=== PATIENT | female | born 1975 | race Caucasian/White ===

== ENCOUNTER 2020-10-13 15:41 | Outpatient (CLI) | payer OTHER, SELFPAY ==
--- NOTE | ~2020-10-13 | MM_ITS ---
EXAMINATION: MM scrn marco a implant BI w marc HISTORY: Screening mammogram TECHNIQUE: Craniocaudal and mediolateral oblique 3-D tomosynthesis images with implant displacement a nd synthetic 2-D images were generated. Craniocaudal and mediolateral oblique views of the breasts wi thout implant displacement were obtained using full field digital mammography. CAD analysis was submi tted and interpreted. COMPARISON: Comparison to multiple prior studies sequentially, with oldest reviewed study dated 12/2015. BREAST PARENCHYMAL COMPOSITION: There are scattered areas of fibroglandular density. FINDINGS: There is no evidence of suspicious mass, calcification, or architectural distortion to sugg est malignancy in either breast. There has been no suspicious interval change. IMPRESSION: 1. No mammographic evidence of malignancy. 2. Recommend routine screening mammography in one year. BI-RADS Category 1: Negative Reviewed, dictated and finalized at location A.
== END 2020-10-13 15:42 | disposition home or self-care (01) ==
LOC: ANHIMG 15:44
PROVIDERS: PCP Family Medicine; Visit Provider Obstetrics & Gynecology
DX: Z12.31 Encounter for screening mammogram for malignant neoplasm of breast (principal)
CPT/HCPCS: 77063; 77067

== ENCOUNTER 2022-10-13 07:28 | Outpatient (CLI) | payer OTHER, SELFPAY ==
--- NOTE | ~2022-10-13 | MM_ITS ---
EXAMINATION: MM scrn marco a implant BI w marc HISTORY: Screening mammogram TECHNIQUE: Craniocaudal and mediolateral oblique 3-D tomosynthesis images with implant displacement a nd synthetic 2-D images were generated. Craniocaudal and mediolateral oblique views of the breasts wi thout implant displacement were obtained using full field digital mammography. CAD analysis was submi tted and interpreted. COMPARISON: October 13, 2020, July 08, 2019 bilateral screening mammogram examinations BREAST PARENCHYMAL COMPOSITION: There are scattered areas of fibroglandular density. FINDINGS: Status post bilateral augmentation mammoplasty. Scattered bilateral benign calcifications a re again noted. There is no evidence of suspicious mass, calcification, or architectural distortion t o suggest malignancy in either breast. There has been no suspicious interval change. IMPRESSION: 1. No mammographic evidence of malignancy. 2. Recommend routine screening mammography in one year. BI-RADS Category 2: Benign finding(s). Reviewed, dictated and finalized at location A.
== END 2022-10-13 07:29 | disposition home or self-care (01) ==
LOC: ANHIMG 07:30
PROVIDERS: PCP Family Medicine; Visit Provider Obstetrics & Gynecology
DX: Z12.31 Encounter for screening mammogram for malignant neoplasm of breast (principal)
CPT/HCPCS: 77063; 77067

== ENCOUNTER 2022-12-21 07:02 | Day surgery (SDC) | payer OTHER, SELFPAY ==
[2022-11-08 09:11] VITALS: BMI 38.9
[2022-12-07 13:23] VITALS: BMI 24.8
--- NOTE | 2022-12-20 12:33 | WPDANESEPPF ---
Anes - Initial Pre Proc Eval Procedure: Operation Date: 12/21/22 09:00 Proposed Procedures p Screening Colonoscopy - Edward Smith MD Date/Time: 12/20/22 12:33 Surgeon: Edward Smith MD Pre Op Diagnosis: Neoplasm Screening Patient Data Age: 47 Gender: F Height: 2.01 m Weight: 100 kg Allergies Allergy/AdvReac Type Severity Reaction Status Date / Time No Known Allergies Allergy Verified 12/21/22 07:32 Home Medications Medication Instructions Recorded Confirmed Type cetirizine 10 mg tablet (Zyrtec) 10 mg PO DAILY 05/19/19 12/21/22 History albuterol sulfate 90 mcg/actuation See Rx Instructions .Route 01/09/22 12/21/22 Rx aerosol inhaler .COMPLEX #25.5 grams budesonide-formoterol HFA 160 See Rx Instructions .Route 02/13/22 12/21/22 Rx mcg-4.5 mcg/actuation aerosol .COMPLEX #30.6 grams inhaler (Symbicort) montelukast 10 mg tablet See Rx Instructions .Route 05/22/22 12/21/22 Rx .COMPLEX #90 tabs nebivolol 10 mg tablet See Rx Instructions .Route 05/24/22 12/21/22 Rx .COMPLEX #90 tabs topiramate 25 mg tablet See Rx Instructions .Route 07/28/22 12/21/22 Rx .COMPLEX #180 tabs esomeprazole magnesium 40 mg 40 mg PO DAILY #90 caps 08/02/22 12/21/22 Rx capsule,delayed release (Nexium) Patient hx anesthesia problems: none Family hx anesthesia problems: none Results Review: All pre-operative results and documents have been reviewed as part of the pre-operative evaluation. [facility] Past Medical History Medical History (Updated 12/20/22 @ 12:33 by José Miguel Tomlinson DO) Asthma Essential (primary) hypertension Hyperlipidemia, unspecified Migraine Surgical History Surgical History Hx of cholecystectomy (~09/23/10) Family History Family History Grandparent Diabetes mellitus Hypertension Family history of malignant neoplasm of cervix Father Family history of elevated blood lipids Family history of primary malignant neoplasm of liver Other Family history of lung cancer Family history of malignant neoplasm of ovary No family history of cardiovascular disease Social History Social History (Updated 08/23/22 @ 09:37 by Sally Washington MA) Smoking status: Never smoker Second hand tobacco smoke exposure: No Alcohol intake: former Substance use: never Substance use type: does not use Lack of Transportation: No Lack of Food: Never True Current Housing: I Have Housing Concerned About Future Housing: No Difficulty Paying Gas/Electric Bills: No Difficulty Paying for Meds: No Currently Unemployed: No Education: Master's Degree or Higher Difficulty w/ Childcare or Family Care: No Living arrangements: with family Occupation/Education: occupation Gender identity (if verbalized by the patient): Female Spiritual care concerns: No Agree to blood products: Yes Anes - Eval Final PreProcedure Day of Procedure 12/20/22 12:33 Patient weight: normal Heart: regular rate and rhythm Lungs: clear to auscultation and normal air movement Airway: Mallampati scale class II Neurological: alert and oriented Last oral intake: >/= 8 hours ASA classification: III Emergent: no Anesthetic plan: proceed Anesthesia type and monitoring: general GIVS and standard monitoring Results Review: All pre-operative results and documents have been reviewed as part of the pre-operative evaluation. Informed Consent: The patient's anesthetic plan and its attendant risks and benefits were discussed with the patient/family/POA. Questions were solicited and answers provided to the satisfaction of the patient/family/POA.
[2022-12-21 07:49] VITALS: BP 147/84; PULSE 73; RESP 16; TEMP 36.8; O2SAT 100
[2022-12-21] MEDS: LACTATED RINGERS 1,000 ML 150 ML IV CONT (07:59)
--- NOTE | 2022-12-21 08:20 | PM.HPGS ---
History of Present Illness History of Present Illness Consent: Risks, benefits, and alternatives have been discussed and questions answered. Patient agrees to proceed with procedure. Chief complaint: Neoplasm Screening Narrative: Cathy Hunter is a 47 year old female here for first screening colonoscopy Review of Systems Constitutional: Constitutional: Denies headache(s) and Denies weakness Eyes: Eyes: Denies blurry vision ENT: Reports Normal hearing present, Denies headache(s) and Denies neck pain Cardiovascular: Cardiovascular: Denies chest pain and Denies dyspnea Respiratory: Respiratory: Denies dyspnea Gastrointestinal: Gastrointestinal: Reports no additional gastrointestinal complaints Genitourinary: Genitourinary: Denies dysuria Musculoskeletal: Musculoskeletal: Denies neck pain Integumentary/Breasts: Skin/Breast: Denies dry skin Neurologic: Reports Normal hearing present, Denies headache(s) and Denies weakness Psychiatric: Psychiatric: Denies anxiety Endocrine: Endocrine: Denies change in body appearance Hematologic/Lymphatic: Hematologic/Lymphatic: Denies easy bleeding Allergic/Immunologic: Allergic/Immunologic: Denies urticaria PMFSH Past Medical History Medical History (Updated 12/20/22 @ 12:33 by José Miguel Tomlinson DO) Asthma Essential (primary) hypertension Hyperlipidemia, unspecified Migraine Surgical History Surgical History Hx of cholecystectomy (~09/23/10) Family History Family History Grandparent Diabetes mellitus Hypertension Family history of malignant neoplasm of cervix Father Family history of elevated blood lipids Family history of primary malignant neoplasm of liver Other Family history of lung cancer Family history of malignant neoplasm of ovary No family history of cardiovascular disease Social History Social History (Updated 08/23/22 @ 09:37 by Sally Washington MA) Smoking status: Never smoker Second hand tobacco smoke exposure: No Alcohol intake: former Substance use: never Substance use type: does not use Lack of Transportation: No Lack of Food: Never True Current Housing: I Have Housing Concerned About Future Housing: No Difficulty Paying Gas/Electric Bills: No Difficulty Paying for Meds: No Currently Unemployed: No Education: Master's Degree or Higher Difficulty w/ Childcare or Family Care: No Living arrangements: with family Occupation/Education: occupation Gender identity (if verbalized by the patient): Female Spiritual care concerns: No Agree to blood products: Yes Meds Home Medications and Allergies Home Medications Medication Instructions Recorded Confirmed Type cetirizine 10 mg tablet (Zyrtec) 10 mg PO DAILY 05/19/19 12/21/22 History albuterol sulfate 90 mcg/actuation See Rx Instructions .Route 01/09/22 12/21/22 Rx aerosol inhaler .COMPLEX #25.5 grams budesonide-formoterol HFA 160 See Rx Instructions .Route 02/13/22 12/21/22 Rx mcg-4.5 mcg/actuation aerosol .COMPLEX #30.6 grams inhaler (Symbicort) montelukast 10 mg tablet See Rx Instructions .Route 05/22/22 12/21/22 Rx .COMPLEX #90 tabs nebivolol 10 mg tablet See Rx Instructions .Route 05/24/22 12/21/22 Rx .COMPLEX #90 tabs topiramate 25 mg tablet See Rx Instructions .Route 07/28/22 12/21/22 Rx .COMPLEX #180 tabs esomeprazole magnesium 40 mg 40 mg PO DAILY #90 caps 08/02/22 12/21/22 Rx capsule,delayed release (Nexium) Allergies Allergy/AdvReac Type Severity Reaction Status Date / Time No Known Allergies Allergy Verified 12/21/22 07:32 Vital Signs Vital Signs - 24 hr 12/21/22 07:49 Temperature 98.2 F Pulse Rate 73 Respiratory Rate 16 Blood Pressure 147/84 H Pulse Oximetry 100 Oxygen Delivery Room Air Exam Const: General: comfortable and no acute distress HENMT: Face/Nose/S
[2022-12-21 08:38] VITALS: BP 107/67; PULSE 72; RESP 18; O2SAT 99
[2022-12-21 08:48] VITALS: BP 116/75; PULSE 70; RESP 18; O2SAT 99
[2022-12-21 08:58] VITALS: BP 117/77; PULSE 61; RESP 18; O2SAT 100
--- NOTE | 2022-12-21 10:01 | WPDANESPN ---
Anes - Prog Note Post-Op Date/Time: 12/21/22 10:01 Cardiovascular status: normal Respiratory status: normal Airway patency: baseline Mental status: baseline Post-Op hydration status: normal Vital Signs: Last Vital Signs Temp 36.8 C 12/21/22 07:49 Pulse 61 12/21/22 08:58 Resp 18 12/21/22 08:58 BP 117/77 12/21/22 08:58 Pulse Ox 100 12/21/22 08:58 O2 Del Method Room Air 12/21/22 08:58 Pain Score (VAS): 0 I/O: Intake & Output 12/20/22 12/21/22 12/21/22 23:59 07:59 15:59 Intake Total 400 Balance 400 Post-procedural complaints: none Patient Feedback: Patient satisfied with anesthetic care. Other Findings: Patient vital signs back to baseline. Patient denies nausea and vomiting. Patient's pain under control. Patient OK for discharge.
== END 2022-12-21 09:06 | disposition home or self-care (01) ==
PROVIDERS: Visit Provider Internal Medicine Gastroenterology
PROC: 0DJD8ZZ Inspection of Lower Intestinal Tract, Via Natural or Artificial Opening Endoscopic (ICD-10-PCS; CPT 45378; principal; 2022-12-21 09:00)
DX: Z12.11 Encounter for screening for malignant neoplasm of colon (principal)
CPT/HCPCS: 45378

== ENCOUNTER 2023-11-23 10:28 | Emergency (ER) | payer OTHER, SELFPAY ==
[2023-11-23 10:45] VITALS: BP 127/64; PULSE 90; RESP 16; TEMP 36.9; O2SAT 100
--- NOTE | 2023-11-23 10:51 | ED.URI ---
HPI - URI/Sore Throat General Chief Complaint: Upper Respiratory Infection Stated Complaint: Chest Cold Time Seen by Provider: 11/23/23 10:51 Source: patient Mode of arrival: ambulatory Limitations: no limitations History of Present Illness HPI Narrative: 47-year-old female presents with complaint nasal congestion, sinus congestion with pressure in for 8-9 days. Afebrile. Also reports coughing. Over the last 2-3 days she has had wheezing with mild chest tightness.. History of asthma. Using Inhalers as prescribed. All systems reviewed and negative except as noted above. Related Data Home Medications Medication Instructions Recorded Confirmed cetirizine 10 mg tablet (Zyrtec) 10 mg PO DAILY 05/19/19 11/23/23 Allergies Allergy/AdvReac Type Severity Reaction Status Date / Time No Known Allergies Allergy Verified 11/23/23 10:40 Review of Systems Review of Systems: CONSTITUTIONAL: Denies fever, chills, or sweats. EYES: Denies visual changes, redness, or discharge. ENT: Denies rhinorrhea, congestion, sore throat, or otalgia. CARDIOVASCULAR: Denies chest pain, palpitations, or edema. RESPIRATORY: Reports cough. Denies dyspnea. GASTROINTESTINAL: Denies abdominal pain, nausea, vomiting, or diarrhea. GENITOURINARY: Denies dysuria or hematuria. SKIN: Denies rash or itching. MUSCULOSKELETAL: Denies back pain, joint pain, or myalgia. NEUROLOGIC: Denies headache, numbness, or weakness. PSYCHIATRIC: Denies anxiety or depression. All other systems reviewed are negative, except as documented in HPI. [facility] Past Medical History Medical History Asthma Essential (primary) hypertension Hyperlipidemia, unspecified Migraine Surgical History Surgical History Hx of cholecystectomy (~09/23/10) Family History Family History Grandparent Diabetes mellitus Hypertension Family history of malignant neoplasm of cervix Father Family history of elevated blood lipids Family history of primary malignant neoplasm of liver Other Family history of lung cancer Family history of malignant neoplasm of ovary No family history of cardiovascular disease Social History Social History Smoking status: Never smoker Second hand tobacco smoke exposure: No Alcohol intake: former Substance use: never Substance use type: does not use Lack of Transportation: No Lack of Food: Never True Current Housing: I Have Housing Concerned About Future Housing: No Difficulty Paying Gas/Electric Bills: No Difficulty Paying for Meds: No Currently Unemployed: No Education: Master's Degree or Higher Difficulty w/ Childcare or Family Care: No Living arrangements: with family Occupation/Education: occupation Gender identity (if verbalized by the patient): Female Spiritual care concerns: No Agree to blood products: Yes Comments At time of signature, agree with nursing past medical, surgical, social and family history. There is no relevant family history pertinent to the presenting complaint. Exam Narrative: GENERAL: This is a well-nourished, well-developed patient, in no apparent distress. HEAD: normocephalic, atraumatic. EYES: PERRL. Sclera clear/white. Vision is grossly intact. EARS: External ears normal, auditory canals clear and without drainage, TMs normal without perforation. Hearing grossly intact. NOSE: External nose normal with purulent nasal drainage, erythema and swelling to bilateral nares. Bilateral maxillary sinus tenderness on palpation. THROAT: Mucous membranes moist, erythematous with postnasal drainage. NECK: Neck supple, non-tender without lymphadenopathy, masses or thyromegaly. CARDIOVASCULAR: Regular rate and rhythm without murmurs, gallops, or rubs. RESPIRATORY: Clear to auscult
== END 2023-11-23 11:03 | disposition home or self-care (01) ==
PROVIDERS: Emergency Provider Nurse Practitioner Family; PCP Family Medicine
DX: J01.90 Acute sinusitis, unspecified (principal); J45.901 Unspecified asthma with (acute) exacerbation; I10 Essential (primary) hypertension; E78.5 Hyperlipidemia, unspecified
CPT/HCPCS: 99213; G0463

== ENCOUNTER 2024-05-06 00:53 | Day surgery (SDC) | payer OTHER, SELFPAY ==
[2024-04-22 15:15] VITALS: BMI 38.0
[2024-05-06 10:03] VITALS: BP 146/86; PULSE 72; RESP 16; TEMP 36.1; O2SAT 100; BMI 39.9
[2024-05-06] MEDS: LACTATED RINGERS 1,000 ML 150 ML IV CONT (10:13)
--- NOTE | 2024-05-06 10:55 | WPDANESEPPF ---
Anes - Initial Pre Proc Eval Procedure: Operation Date: 05/06/24 11:00 Proposed Procedures p Esophagogastroduodenoscopy - Chris Vasquez MD Date/Time: 05/06/24 10:55 Surgeon: Chris Vasquez MD Pre Op Diagnosis: abd pain Patient Data Age: 48 Gender: F Height: 1.73 m Weight: 119 kg Last Vital Signs Temp 36.1 C L 05/06/24 10:03 Pulse 72 05/06/24 10:03 Resp 16 05/06/24 10:03 BP 146/86 H 05/06/24 10:03 Pulse Ox 100 05/06/24 10:03 O2 Del Method Room Air 05/06/24 10:03 Allergies Allergy/AdvReac Type Severity Reaction Status Date / Time No Known Allergies Allergy Verified 05/06/24 10:01 Home Medications Medication Instructions Recorded Confirmed Type cetirizine 10 mg tablet (Zyrtec) 10 mg PO DAILY 05/19/19 05/06/24 History nebivolol 10 mg tablet See Rx Instructions .Route 11/15/23 05/06/24 Rx .COMPLEX #90 tabs topiramate 25 mg tablet See Rx Instructions .Route 12/18/23 05/06/24 Rx .COMPLEX #180 tabs montelukast 10 mg tablet See Rx Instructions .Route 12/24/23 05/06/24 Rx .COMPLEX #90 tabs albuterol sulfate 90 mcg/actuation See Rx Instructions .Route 12/28/23 05/06/24 Rx aerosol inhaler .COMPLEX #25.5 grams esomeprazole magnesium 40 mg 40 mg PO BID #180 caps 01/31/24 05/06/24 Rx capsule,delayed release (Nexium) budesonide-formoterol HFA 160 See Rx Instructions .Route 02/04/24 05/06/24 Rx mcg-4.5 mcg/actuation aerosol .COMPLEX #30.6 grams inhaler (Symbicort) Patient hx anesthesia problems: none Family hx anesthesia problems: none Results Review: All pre-operative results and documents have been reviewed as part of the pre-operative evaluation. [facility] Past Medical History Medical History (Updated 05/05/24 @ 14:01 by José Miguel Tomlinson DO) Asthma Essential (primary) hypertension Gastro-esophageal reflux disease with esophagitis Hyperlipidemia, unspecified Migraine Surgical History Surgical History Hx of cholecystectomy (~09/23/10) Family History Family History Grandparent Diabetes mellitus Hypertension Family history of malignant neoplasm of cervix Father Family history of elevated blood lipids Family history of primary malignant neoplasm of liver Other Family history of lung cancer Family history of malignant neoplasm of ovary No family history of cardiovascular disease Social History Social History Smoking status: Never smoker Second hand tobacco smoke exposure: No Substance use: current Substance use type: marijuana Other substance usage details: nightly gummy to sleep Lack of Transportation: No Lack of Food: Never True Current Housing: I Have Housing Concerned About Future Housing: No Difficulty Paying Gas/Electric Bills: No Difficulty Paying for Meds: No Currently Unemployed: No Education: Master's Degree or Higher Difficulty w/ Childcare or Family Care: No Living arrangements: with family Occupation/Education: occupation Gender identity (if verbalized by the patient): Female Spiritual care concerns: No Agree to blood products: Yes Anes - Eval Final PreProcedure Day of Procedure 05/06/24 10:55 Patient weight: obese Heart: regular rate and rhythm Lungs: clear to auscultation Airway: Mallampati scale class II Neurological: alert and oriented Last oral intake: >/= 8 hours ASA classification: III Emergent: no Anesthetic plan: proceed Anesthesia type and monitoring: general GIVS and standard monitoring Results Review: All pre-operative results and documents have been reviewed as part of the pre-operative evaluation. Informed Consent: The patient's anesthetic plan and its attendant risks and benefits were discussed with the patient/family/POA. Questions were solicited and answers provided to the satisfaction of the patient/family/POA.
--- NOTE | 2024-05-06 11:33 | PM.IMHP ---
H&P: HPI History of Present Illness Date/Time: 05/06/24 11:33 Chief Complaint: Epigastric pain and heartburn Narrative: the patient has a past history of peptic ulcer disease, treated in the past. She was taking Dexilant for a long period of time, and recently switched to Nexium which she takes twice a day. Despite this, she experiences almost daily episodes of sharp, moderate to severe epigastric pain, associated with daily heartburn episodes with occasional regurgitation. She is referred for EGD by her primary care physician. Review of Systems Review of Systems: All systems reviewed & are unremarkable except as noted in HPI and below [facility] Past Medical History Medical History (Updated 05/05/24 @ 14:01 by José Miguel Tomlinson DO) Asthma Essential (primary) hypertension Gastro-esophageal reflux disease with esophagitis Hyperlipidemia, unspecified Migraine Surgical History Surgical History Hx of cholecystectomy (~09/23/10) Family History Family History Grandparent Diabetes mellitus Hypertension Family history of malignant neoplasm of cervix Father Family history of elevated blood lipids Family history of primary malignant neoplasm of liver Other Family history of lung cancer Family history of malignant neoplasm of ovary No family history of cardiovascular disease Social History Social History Smoking status: Never smoker Second hand tobacco smoke exposure: No Substance use: current Substance use type: marijuana Other substance usage details: nightly gummy to sleep Lack of Transportation: No Lack of Food: Never True Current Housing: I Have Housing Concerned About Future Housing: No Difficulty Paying Gas/Electric Bills: No Difficulty Paying for Meds: No Currently Unemployed: No Education: Master's Degree or Higher Difficulty w/ Childcare or Family Care: No Living arrangements: with family Occupation/Education: occupation Gender identity (if verbalized by the patient): Female Spiritual care concerns: No Agree to blood products: Yes Meds Home Medications and Allergies Home Medications Medication Instructions Recorded Confirmed Type cetirizine 10 mg tablet (Zyrtec) 10 mg PO DAILY 05/19/19 05/06/24 History nebivolol 10 mg tablet See Rx Instructions .Route 11/15/23 05/06/24 Rx .COMPLEX #90 tabs topiramate 25 mg tablet See Rx Instructions .Route 12/18/23 05/06/24 Rx .COMPLEX #180 tabs montelukast 10 mg tablet See Rx Instructions .Route 12/24/23 05/06/24 Rx .COMPLEX #90 tabs albuterol sulfate 90 mcg/actuation See Rx Instructions .Route 12/28/23 05/06/24 Rx aerosol inhaler .COMPLEX #25.5 grams esomeprazole magnesium 40 mg 40 mg PO BID #180 caps 01/31/24 05/06/24 Rx capsule,delayed release (Nexium) budesonide-formoterol HFA 160 See Rx Instructions .Route 02/04/24 05/06/24 Rx mcg-4.5 mcg/actuation aerosol .COMPLEX #30.6 grams inhaler (Symbicort) Allergies Allergy/AdvReac Type Severity Reaction Status Date / Time No Known Allergies Allergy Verified 05/06/24 10:01 Vital Signs Vital Signs - 24 hr 05/06/24 10:03 Temperature 97 F L Pulse Rate 72 Respiratory Rate 16 Blood Pressure 146/86 H Pulse Oximetry 100 Oxygen Delivery Room Air Exam Const: General: cooperative and healthy appearing Resp: Effort & Inspection: normal respiratory effort and able to speak in complete sentences Auscultation: clear to auscultation bilaterally Cardio: Rate: regular rate Rhythm: regular rhythm GI: Inspection: normal to inspection GI Palp: No No hepatosplenomegaly present Auscultation: normal bowel sounds Rectal Exam: deferred Skin: General skin exam: normal color Psych: Appearance: grossly normal Mental Status: mental status grossly normal Assessment and Plan Assessment and plan (1) Gastro-esophageal reflux disease with esophagitis: Code(s): K21.0 - Gastro-esophageal reflux disease with esophagitis Status: Chronic Assessment and Plan: The patient is deemed a good candidate for the procedure. Consent signed. Will proceed.
[2024-05-06] MEDS: BENZOCAINE (*SP) 60 ML SPRAY CAN (HURRICAINE) 1 SPRAY MUCOUS MEM (11:41)
[2024-05-06 11:42] LABS: BEDSIDEPREGUCG Negative (Negative)
[2024-05-06 11:57] VITALS: BP 102/58; PULSE 70; RESP 18; O2SAT 98
[2024-05-06 12:07] VITALS: BP 109/60; PULSE 73; RESP 17; O2SAT 98
[2024-05-06 12:17] VITALS: BP 113/69; PULSE 69; RESP 19; O2SAT 99
== END 2024-05-06 12:47 | disposition home or self-care (01) ==
PROVIDERS: PCP Family Medicine; Referring Provider Obstetrics & Gynecology; Visit Provider Internal Medicine Gastroenterology
PROC: 0DJ08ZZ Inspection of Upper Intestinal Tract, Via Natural or Artificial Opening Endoscopic (ICD-10-PCS; CPT 43235; principal; 2024-05-06 11:00)
DX: K29.50 Unspecified chronic gastritis without bleeding (principal); K31.7 Polyp of stomach and duodenum; K21.9 Gastro-esophageal reflux disease without esophagitis; E78.5 Hyperlipidemia, unspecified; I10 Essential (primary) hypertension; J45.909 Unspecified asthma, uncomplicated; F12.90 Cannabis use, unspecified, uncomplicated; E66.9 Obesity, unspecified; Z68.39 Body mass index [BMI] 39.0-39.9, adult; Z79.51 Long term (current) use of inhaled steroids; Z98.890 Other specified postprocedural states; Z90.49 Acquired absence of other specified parts of digestive tract; Z80.49 Family history of malignant neoplasm of other genital organs; Z80.0 Family history of malignant neoplasm of digestive organs; Z80.1 Family history of malignant neoplasm of trachea, bronchus and lung; Z80.41 Family history of malignant neoplasm of ovary; Z82.49 Family history of ischemic heart disease and other diseases of the circulatory system
CPT/HCPCS: 43251; 43239; 88305; J2003; J2704; J7120

== ENCOUNTER 2024-08-30 10:59 | Emergency (ER) | payer OTHER, SELFPAY ==
[2024-08-30 11:14] VITALS: BP 129/61; PULSE 94; RESP 16; TEMP 36.8; O2SAT 100
--- NOTE | 2024-08-30 11:37 | ED.URI ---
HPI - URI/Sore Throat General Chief Complaint: Upper Respiratory Infection Stated Complaint: Upper REspiratory Time Seen by Provider: 08/30/24 11:20 Source: patient Mode of arrival: ambulatory Limitations: no limitations History of Present Illness HPI Narrative: Cathy is a 48-year-old female patient presenting to the clinic today with complaints of cough, congestion, shortness of breath, and sinus pressure. She reports she has had her symptoms for over 1 month since she has had COVID. Was treated with Augmentin and steroid for a sinus infection. Reports that her symptoms did improve however after finishing the medication her symptoms came back and got down into her lungs. She denies any fevers, chills, or body aches. History of asthma. MD elicited complaint: cough, rhinorrhea, nasal congestion, sinus pain and other (Shortness of breath) Related Data Home Medications ?Medication ?Instructions ?Recorded ?Confirmed ?Last Taken ?Type cetirizine 10 mg tablet (Zyrtec) 10 mg PO DAILY 05/19/19 06/03/24 05/05/24 History Allergies Allergy/AdvReac Type Severity Reaction Status Date / Time No Known Allergies Allergy Verified 08/30/24 11:25 Review of Systems Review of Systems: Pertinent positives per HPI. Patient denies any fever, chills, rash, headache, visual changes, dizziness, chest pain, palpitations, nausea, vomiting, diarrhea, constipation, abdominal pain, or any urinary issues. [facility] Past Medical History Medical History Essential (primary) hypertension Gastro-esophageal reflux disease with esophagitis Hyperlipidemia, unspecified Migraine Asthma Surgical History Surgical History Hx of cholecystectomy (~09/23/10) Family History Family History Grandparent Diabetes mellitus Hypertension Family history of malignant neoplasm of cervix Father Family history of elevated blood lipids Family history of primary malignant neoplasm of liver Other Family history of lung cancer Family history of malignant neoplasm of ovary No family history of cardiovascular disease Social History Social History Smoking status: Never smoker Second hand tobacco smoke exposure: No Substance use: current Substance use type: marijuana Other substance usage details: nightly gummy to sleep Lack of Transportation: No Lack of Food: Never True Current Housing: I Have Housing Concerned About Future Housing: No Difficulty Paying Gas/Electric Bills: No Difficulty Paying for Meds: No Currently Unemployed: No Education: Master's Degree or Higher Difficulty w/ Childcare or Family Care: No Living arrangements: with family Occupation/Education: occupation Gender identity (if verbalized by the patient): Female Spiritual care concerns: No Agree to blood products: Yes Comments At the time of my signature, I reviewed and agree with the nursing past medical, surgical, social, and family history. There is no relevant family history pertinent to the patient complaint. Exam Narrative: General: Well-developed, obese, in no apparent distress Head: Normocephalic, atraumatic Eyes: Pupils equally round and reactive to light bilaterally, EOM intact, sclera and conjunctive clear, no discharge, lids normal Ears: TMs intact and congested, ear canals clear, no drainage, grossly hearing normal. Nose: Nares patent, green nasal discharge, moderate inflammation, maxillary sinus tenderness. Mouth: Oral pharynx without lesions or masses, good dentition, MMM. Postnasal drip Neck: Supple, trachea midline, no enlargement of anterior or posterior cervical nodes, no thyroid masses or goiter palpable. Cardio: Regular rate and rhythm, s1 and s2 normal, no murmur appreciated. Resp: Expiratory wheezing, no rhonchi, rales, or rubs Course Course Emergency Course: Portions of this record may have been created with voice recognition software. Level of Care: Express Care Visit Vital Signs Vital signs: Vital Signs Temperature 36.8 C 08/30/24 11:14 Pulse Rate 94 08/30/24 11:14 Respiratory Rate 16 08/30/24 11:14 Blood Pressure 129/61 08/30/24 11:14 Pulse Oximetry 100 08/30/24 11:14 Temperature 36.8 C 08/30/24 11:14 Pulse Rate 94 08/30/24 11:14 Respiratory Rate 16 08/30/24 11:14 Blood Pressure 129/61 08/30/24 11:14 Pulse Oximetry 100 08/30/24 11:14 Vital signs reviewed MDM - URI/Sore Throat MDM Narrative Medical decision making narrative: At the time of visit patient is resting comfortably on the exam table. Patient appears to be nontoxic. Plan: I suspect patient has sinusitis/bronchitis. Prescription for doxycycline, prednisone, and albuterol nebulizer solution was sent to the pharmacy. Supportive measures were discussed with the patient and they voiced understanding discharge instructions and agrees to treatment plan. Return precautions reviewed Differential Diagnosis Differential diagnosis: Likely upper respiratory infection, otitis media, sinusitis, viral infection, bronchitis, influenza, pharyngitis and other (COVID) Discharge Plan Discharge Clinical Impression: Sinobronchitis Patient Disposition: Home, Self-Care Condition: Stable Instructions: Antibiotic Form, Sinusitis (ED), Acute Bronchitis (ED) Additional Instructions: Take prescription medications only as prescribed-doxycycline, taper dose prednisone, and albuterol nebulizer solution Increase fluids and stay well hydrated Tylenol/motrin for pain/fever Flonase and OTC antihistamines as directed Vicks vapor rub to open sinuses Sinus rinses for congestion Cepacol spray, cough drops, throat lozenges, warm tea with honey/lemon, gargle salt water to soothe throat BRAT diet for diarrhea Clear liquids x 24 hours then advance as tolerated for nausea/vomiting Go to the ED if you develop a worsening in your condition- high fever not controlled by Tylenol or Motrin, dehydration, weakness, lethargy, shortness of breath, or chest pain. Follow up with your PCP in 3-5 days if symptoms persist. Patient Language: [place] Prescriptions: New albuterol sulfate 2.5 mg /3 mL (0.083 %) solution for nebulization 2.5 mg inhalation Q4H PRN (Reason: shortness of breath or wheezing) 30 Days Qty: 90 0RF doxycycline monohydrate 100 mg capsule 100 mg PO BID 10 Days Qty: 20 0RF prednisone 10 mg tablet 10 mg PO DAILY Qty: 30 0RF Rx Instructions: 60mg po daily on day 1, 40mg po daily on days 2-4, 30mg po daily on days 5-6, 20mg po daily on days 7-8, 10mg po daily on days 9-10 No Action cetirizine [Zyrtec] 10 mg tablet 10 mg PO DAILY Xifaxan 550 mg tablet 550 mg PO TID 14 Days Qty: 42 1RF montelukast 10 mg tablet See Rx Instructions .ROUTE .COMPLEX Qty: 90 3RF Dose Instruction: TAKE 1 TABLET DAILY Rx Instructions: TAKE 1 TABLET DAILY albuterol sulfate 90 mcg/actuation HFA aerosol inhaler See Rx Instructions .ROUTE .COMPLEX Qty: 25.5 3RF Dose Instruction: USE 2 INHALATIONS EVERY 4 HOURS NEEDED FOR SHORTNESS OF BREATH OR WHEEZING Rx Instructions: USE 2 INHALATIONS EVERY 4 HOURS NEEDED FOR SHORTNESS OF BREATH OR WHEEZING Symbicort 160-4.5 mcg/actuation HFA aerosol inhaler See Rx Instructions .ROUTE .COMPLEX Qty: 30.6 3RF Dose Instruction: USE 2 INHALATIONS EVERY 12 HOURS Rx Instructions: USE 2 INHALATIONS EVERY 12 HOURS nebivolol 10 mg tablet See Rx Instructions .ROUTE .COMPLEX Qty: 90 1RF Dose Instruction: TAKE 1 TABLET DAILY Rx Instructions: TAKE 1 TABLET DAILY topiramate 25 mg tablet See Rx Instructions .ROUTE .COMPLEX Qty: 180 1RF Dose Instruction: TAKE 1 TABLET TWICE A DAY Rx Instructions: TAKE 1 TABLET TWICE A DAY esomeprazole magnesium [Nexium] 40 mg capsule,delayed release(DR/EC) 40 mg PO BID Qty: 180 1RF Follow-up/Referrals: Delano Prater MD [Primary Care Provider] - Time of Disposition: 11:40 Quality NIHSS Nursing Documentation ED NIHSS nursing documentation: reviewed/agree
== END 2024-08-30 11:42 | disposition home or self-care (01) ==
PROVIDERS: Emergency Provider Nurse Practitioner Family; PCP Family Medicine
DX: J32.9 Chronic sinusitis, unspecified (principal); J40 Bronchitis, not specified as acute or chronic; I10 Essential (primary) hypertension; E78.5 Hyperlipidemia, unspecified; J45.909 Unspecified asthma, uncomplicated; K21.00 Gastro-esophageal reflux disease with esophagitis, without bleeding
CPT/HCPCS: 99213; G0463